=== PATIENT | female | born 1955 | race Caucasian/White ===

== ENCOUNTER → 2018-01-26 08:50 | Outpatient (CLI) | payer BC, SELFPAY ==
[2018-01-27 11:48] LABS: Basophils % 0.3 % (0.1-2.0); Eosinophils # 0.1 K/mm3 (0.0-0.4); Eosinophils % 0.8 % (0.1-12.0); Hemoglobin 13.9 g/dL (12.2-16.2); Lymphocytes # 2.7 K/mm3 (0.7-4.5); Lymphocytes % 40.7 K/mm3 (10-50); Mean Corpuscular HGB Conc 31.6 g/dL (31.8-35.4); Mean Corpuscular Volume 94.8 fl (81-99); Mean Platelet Volume 8.9 fl (7.4-10.4); Monocytes # 0.3 K/mm3 (0.1-1.0); Neutrophils # 3.6 K/mm3 (1.8-7.8); Neutrophils % 54.3 % (37.0-80.0); Platelet Count 379 K/mm3 (142-424); Red Blood Count 4.65 M/mm3 (4.20-5.40); Red Cell Distribution Width 12.6 % (11.5-17.5); White Blood Count 6.6 K/mm3 (4.8-10.8)
[2018-01-27 12:03] LABS: Alanine Aminotransferase 19 U/L (12-78); Albumin Level 4.2 gm/dL (3.4-5.0); Albumin/Globulin Ratio 1.3 (1.1-1.8); Alkaline Phosphatase 105 U/L (46-116); Anion Gap 12.3 mEq/L (5-15); Aspartate Amino Transferase 11 U/L (15-37); Bilirubin,Total 0.6 mg/dL (0.2-1.0); Blood Urea Nitrogen 13 mg/dL (7-18); Calcium 9.4 mg/dL (8.5-10.1); Carbon Dioxide 29 mmol/L (21.0-32.0); Chloride 104 mmol/L (98-107); Chol/HDL Ratio 3.1 (1-3.5); Cholesterol 210 mg/dL (140-200); Creatinine,Serum 0.97 mg/dL (0.55-1.02); Estimated Glomerular Filt Rate 59 ml/min (>60); Free T4 (Free Thyroxine) 0.98 ng/dl (0.76-1.46); GFR (African American) 71 ML/MIN (>60); Globulin 3.2 gm/dl (1.3-3.2); Glucose 88 mg/dL (74-106); HDL Cholesterol 68 mg/dL (29-89); LDL Cholesterol 117 mg/dL (0-130); Potassium 4.3 mmoL/L (3.5-5.1); Sodium 141 mmol/L (136-145); Thyroid Stimulating Hormone 2.03 uIU/ml (0.358-3.740); Total Protein,Serum 7.4 gm/dL (6.4-8.2); Triglycerides 126 mg/dL (30-200); VLDL Cholesterol 25 mg/dL (0-40)
[2018-01-30 12:54] LABS: Vitamin D 25 Hydroxy 26.8 ng/mL (30.0-100.0)
== END ==
PROVIDERS: Visit Provider Physician Assistant
DX: R01.1 Cardiac murmur, unspecified (principal); R06.00 Dyspnea, unspecified; R53.83 Other fatigue
CPT/HCPCS: 80053; 80061; 82652; 84439; 84443; 85025

== ENCOUNTER → 2018-01-26 11:58 | Outpatient (CLI) | payer BC, SELFPAY | PROVIDERS: PCP Physician Assistant; Visit Provider Physician Assistant | DX: R00.2 Palpitations (principal) | CPT/HCPCS: 93225; 93226 ==

== ENCOUNTER → 2018-02-08 09:28 | Outpatient (CLI) | payer BC, SELFPAY | PROVIDERS: Family Provider Physician Assistant; PCP Physician Assistant; Visit Provider Physician Assistant | DX: R01.1 Cardiac murmur, unspecified (principal); R06.00 Dyspnea, unspecified | CPT/HCPCS: 93306 ==

== ENCOUNTER → 2018-07-13 09:35 | Outpatient (CLI) | payer BC, SELFPAY ==
--- NOTE | 2018-07-13 09:41 | XR_ITS ---
XR wrist LT min 3V HISTORY pain following injury ITS.REASON: L wrist injury ORDERING PHYSICIAN: Shade Garcia PATIENT AGE: 62 years Comparison: None FINDINGS: No fracture or dislocation. No lytic or blastic change. There is normal mineralization.. The joint spaces are well-preserved. No significant degenerative/arthritic changes. No erosive changes evident.. IMPRESSION: Negative wrist
== END ==
PROVIDERS: PCP Emergency Medicine; Visit Provider Nurse Practitioner Family
DX: S69.92XA Unspecified injury of left wrist, hand and finger(s), initial encounter (principal)
CPT/HCPCS: 73110

== ENCOUNTER 2019-02-16 11:16 | Outpatient (CLI) | payer BC, SELFPAY ==
[2019-02-16 11:35] VITALS: BP 138/67; PULSE 78; RESP 18; TEMP 36.6; O2SAT 96
[2019-02-16 12:05] VITALS: BP 139/81; PULSE 71; RESP 18; TEMP 36.6; O2SAT 98
[2019-02-16 12:30] VITALS: BP 132/76; PULSE 74; RESP 18; TEMP 36.7; O2SAT 98
== END 2019-02-16 12:30 | disposition home or self-care (01) ==
LOC: INF 11:18
PROVIDERS: PCP Emergency Medicine; Visit Provider Emergency Medicine
DX: L03.211 Cellulitis of face (principal)
CPT/HCPCS: 96365; 96375

== ENCOUNTER 2019-02-17 11:27 | Outpatient (CLI) | payer BC, SELFPAY ==
[2019-02-17 11:41] VITALS: BP 133/80; PULSE 67; RESP 18; TEMP 37; O2SAT 97
[2019-02-17 13:14] VITALS: BP 130/78; PULSE 67; RESP 18; O2SAT 97
== END 2019-02-17 12:55 | disposition hospice, home (50) ==
LOC: INF 11:27
PROVIDERS: PCP Emergency Medicine; Visit Provider Emergency Medicine
DX: L03.211 Cellulitis of face (principal)
CPT/HCPCS: 96365; 96374; 96375

== ENCOUNTER → 2019-02-18 10:41 | Outpatient (CLI) | payer BC, SELFPAY ==
[2019-02-18 11:38] VITALS: BP 128/80; BP 130/89; PULSE 79; PULSE 80; RESP 16; TEMP 36.7; O2SAT 97; O2SAT 98
== END ==
PROVIDERS: PCP Emergency Medicine; Visit Provider Emergency Medicine
DX: L03.211 Cellulitis of face (principal)
CPT/HCPCS: 96365

== ENCOUNTER → 2020-04-02 09:48 | Outpatient (CLI) | payer BC, SELFPAY ==
--- NOTE | 2020-04-02 09:51 | MM_ITS ---
PROCEDURE: MM DIG SCREENING MAMM BI W/CAD Digital Breast Tomosynthesis Included CLINICAL INDICATION: SCREENING There is no personal or family history of breast cancer. COMPARISON: MG DIG MAMMO BILAT SCREENING from 09/17/2009 MG DIG MAMMO BILAT SCREENING from 09/18/2010 MG DMSB DIG MAMM-SCREEN RAHEEM W/CAD from 04/08/2017 TECHNIQUE: Standard CC and MLO images and 3D Tomosynthesis was obtained. R2 CAD reviewed. FINDINGS: The breasts are composed primarily of with minimal scattered fibroglandular densities in each breast. There are mole markers on each breast. IMPRESSION: Fibrofatty parenchyma with no suspicious lesions seen BI-RAD Category: 2 Benign Finding(s) FOLLOW-UP: 1YR 1 Year Follow-up (A letter has been sent to the patient regarding results of the study.) Dictated by: Dr. Kirill Mcleod MD 04/04/2020 07:39 Dr. Kirill Mcleod MD in [place] 04/04/2020 07:39
== END ==
PROVIDERS: PCP Nurse Practitioner Family; Visit Provider Nurse Practitioner Family
DX: Z12.31 Encounter for screening mammogram for malignant neoplasm of breast (principal)
CPT/HCPCS: 77063; 77067

== ENCOUNTER → 2021-01-26 08:47 | Outpatient (CLI) | payer BC, SELFPAY ==
--- NOTE | 2021-01-26 09:15 | XR_ITS ---
PROCEDURE: XR CHEST 2V CLINICAL HISTORY: PRECORDIAL PAIN COMPARISON: No exams were available for comparison FINDINGS: The cardiomediastinal silhouette and pulmonary vascularity are within normal limits. The lungs are clear without infiltrates, suspicious nodules, or pleural effusions. Minimal atelectatic or fibrotic change in the right lung base. IMPRESSION: Minimal right basilar atelectasis or fibrosis otherwise negative Dictated by: Hari Norman MD 01/26/2021 10:09 Hari Norman MD in [place] 01/26/2021 10:09
[2021-01-26 09:16] LABS: Basophils % 0.6 % (0.1-2.0); Eosinophils # 0.1 K/mm3 (0.0-0.4); Hematocrit 42.9 % (37.0-47.0); Lymphocytes # 2.6 K/mm3 (0.7-4.5); Lymphocytes % 35.1 % (10-50); Mean Corpuscular HGB Conc 32.6 g/dL (31.8-35.4); Mean Corpuscular Volume 94.9 fl (81-99); Mean Platelet Volume 8.4 fl (7.4-10.4); Monocytes # 0.3 K/mm3 (0.1-1.0); Monocytes % 3.8 % (1.7-9.3); Neutrophils # 4.3 K/mm3 (1.8-7.8); Neutrophils % 59.6 % (37.0-80.0); Platelet Count 361 K/mm3 (142-424); Red Blood Count 4.52 M/mm3 (4.20-5.40); Red Cell Distribution Width 12.9 % (11.5-17.5); White Blood Count 7.3 K/mm3 (4.8-10.8)
--- NOTE | 2021-01-26 09:33 | ECG_ITS ---
APPROVED REPORT Exam: Resting ECG HR:48 bpm ECG Measurements Heart Rate 48 AXES [place] 164 P 13 QRSd 96 QRS 4 QT 456 T 11 QTc 407 Conclusion Marked sinus bradycardia Abnormal ECG Electronically signed by : Abdirahman Lu MD 01/26/2021 18:01:33
[2021-01-26 09:36] LABS: D-Dimer 0.33 ug/mL (0.0-0.5)
[2021-01-26 09:59] LABS: Chloride 102 mmol/L (98-107); Potassium 3.8 mmoL/L (3.5-5.1); Sodium 141 mmol/L (136-145)
[2021-01-26 10:02] LABS: Alanine Aminotransferase 17 U/L (12-78); Albumin Level 4.2 g/dl (3.5-5.0); Albumin/Globulin Ratio 1.6 (1.1-1.8); Alkaline Phosphatase 84 U/L (38-126); Anion Gap 11.8 mEq/L (5-15); Aspartate Amino Transferase 29 U/L (14-36); Bilirubin,Total 0.8 mg/dl (0.2-1.3); Blood Urea Nitrogen 15 mg/dl (7-17); Carbon Dioxide 31 mmol/L (22.0-30.0); Estimated Glomerular Filt Rate 72 ml/min (>60); GFR (African American) 88 ML/MIN (>60); Globulin 2.6 g/dL (1.3-3.2); Total Protein,Serum 6.8 g/dl (6.3-8.2)
[2021-01-26 10:03] LABS: Calcium 9.3 mg/dl (8.4-10.2); Glucose 97 mg/dl (74-100)
[2021-01-26 10:31] LABS: Troponin I < 0.01 ng/ml (0.00-0.034)
[2021-01-26 10:34] LABS: Thyroid Stimulating Hormone 2.41 uIU/mL (0.465-4.68)
== END ==
PROVIDERS: Visit Provider Nurse Practitioner Family
DX: R07.2 Precordial pain (principal)
CPT/HCPCS: 36415; 71046; 80053; 84443; 84484; 85025; 85378; 93005

== ENCOUNTER → 2021-04-14 09:54 | Outpatient (CLI) | payer BC, SELFPAY ==
--- NOTE | 2021-04-14 10:04 | MM_ITS ---
PROCEDURE INFORMATION: Exam: MG Bilateral Screening 3D Mammography Exam date and time: 04/14/2021 10:04 AM Age: 65 years old Clinical indication: Screening exam; No personal or family HX of malignancy TECHNIQUE: Imaging protocol: Bilateral screening tomosynthesis and 2D mammography including computer-aided detection (CAD) when performed. COMPARISON: 1. MG MM DIG SCREENING MAMM BI W/CAD 04/02/2020 9:50 AM 2. MG DMSB DIG MAMM-SCREEN RAHEEM W/CAD 04/08/2017 10:33 AM FINDINGS: MAMMOGRAPHY: Breast composition: The breast tissue is composed of scattered areas of fibroglandular density. Mass: None. Architectural distortion: None. Calcifications: No suspicious calcifications. Asymmetric density: None. Skin thickening: None. Axillary adenopathy: None. IMPRESSION: No mammographic evidence of malignancy. Annual screening is recommended unless otherwise clinically indicated. ASSESSMENT: BI-RADS Category 1: Negative
== END ==
PROVIDERS: PCP Nurse Practitioner Family; Visit Provider Nurse Practitioner Family
DX: Z12.31 Encounter for screening mammogram for malignant neoplasm of breast (principal)
CPT/HCPCS: 77063; 77067

== ENCOUNTER 2022-06-23 17:15 | Emergency (ER) | payer BC, SELFPAY ==
[2022-06-23 17:16] VITALS: BP 172/102; PULSE 64; RESP 18; TEMP 36.6; O2SAT 100; BMI 27.6
[2022-06-23 17:47] VITALS: PULSE 72; O2SAT 100
--- NOTE | 2022-06-23 18:08 | CT_ITS ---
PROCEDURE INFORMATION: Exam: CT Head Without Contrast Exam date and time: 06/23/2022 6:53 PM Age: 66 years old Clinical indication: Stroke-like symptoms; Headache; Additional info: Cerebral hemorrhage suspected TECHNIQUE: Imaging protocol: Computed tomography of the head without contrast. Radiation optimization: All CT scans at this facility use at least one of these dose optimization techniques: automated exposure control; mA and/or kV adjustment per patient size (includes targeted exams where dose is matched to clinical indication); or iterative reconstruction. Other technique: STROKE PROTOCOL was implemented. COMPARISON: No relevant prior studies available. FINDINGS: Brain: Normal. No hemorrhage. No mass effect. No evidence of acute infarct. Cortical sulci and white matter are unremarkable for age Cerebral ventricles: No ventriculomegaly. Paranasal sinuses: Visualized sinuses are unremarkable. No fluid levels. Mastoid air cells: Visualized mastoid air cells are well aerated. Bones/joints: Unremarkable. Soft tissues: Unremarkable. IMPRESSION: Normal CT examination of the head. ASSESSMENT: ASPECTS ([place] Stroke Program Early CT Score) is 10.
[2022-06-23 18:10] LABS: Basophils # 0.1 K/mm3 (0-0.2); Basophils % 0.7 % (0.1-2.0); Eosinophils % 0.4 % (0.1-12.0); Hematocrit 40.6 % (37.0-47.0); Hemoglobin 13.6 g/dL (12.2-16.2); Lymphocytes # 2.2 K/mm3 (0.7-4.5); Lymphocytes % 21.5 % (10-50); Mean Corpuscular HGB Conc 33.4 g/dL (31.8-35.4); Mean Corpuscular Hemoglobin 30.4 pg (27.0-31.2); Mean Corpuscular Volume 91.2 fl (81-99); Monocytes # 0.3 K/mm3 (0.1-1.0); Monocytes % 2.7 % (1.7-9.3); Neutrophils # 7.7 K/mm3 (1.8-7.8); Neutrophils % 74.7 % (37.0-80.0); Platelet Count 340 K/mm3 (142-424); Red Blood Count 4.46 M/mm3 (4.20-5.40); Red Cell Distribution Width 12.7 % (11.5-17.5); White Blood Count 10.4 K/mm3 (4.8-10.8)
[2022-06-23 18:15] LABS: Anion Gap 13.1 mEq/L (5-15); Blood Urea Nitrogen 17 mg/dl (7-17); Calcium 8.9 mg/dl (8.4-10.2); Carbon Dioxide 26 mmol/L (22.0-30.0); Chloride 100 mmol/L (98-107); Creatinine Clearance Estimated 63 mL/min (50-200); Estimated Glomerular Filt Rate 84 ml/min (>60); GFR (African American) 102 ML/MIN (>60); Glucose 126 mg/dl (74-100); Potassium 3.1 mmoL/L (3.5-5.1); Sodium 136 mmol/L (136-145)
--- NOTE | 2022-06-23 19:00 | PC.NURSE ---
pt back from scan
[2022-06-23 19:44] VITALS: BP 135/79; PULSE 68; RESP 18; O2SAT 98
[2022-06-23 20:00] VITALS: BP 133/67; PULSE 62; RESP 18; O2SAT 98
--- NOTE | 2022-06-23 20:30 | HMH.EDGENADL ---
Discharge Plan Disposition Patient Disposition: Home, Self-Care Prescriptions Prescriptions: No Action esomeprazole magnesium [Nexium] 20 mg capsule,delayed release(DR/EC) 20 mg PO DAILY prednisone 20 mg tablet 20 mg PO BID 5 Days Qty: 10 0RF Rx Instructions: administer with food or milk lisinopril 10 mg tablet 10 mg PO DAILY Qty: 90 0RF fluticasone propionate 120 SPR/BOT bottle 2 spr NS DAILY Rx Instructions: each nostril daily Referrals Follow up/Referrals: Gina Davalos [Primary Care Provider] - See instructions Clinical Impressions Clinical Impression: Migraine Instructions Patient Instructions: DI for Migraine Discharge ED Provider: Thomas Jarvis General Adult HPI General Chief complaint: Headache Stated complaint: Vomitting,Chills,Blurry vision, bp high Time Seen by Provider: 06/23/22 17:30 Mode of Arrival: Wheelchair Source of Information: Patient and Relative Limitations: No Limitations Description of Symptoms (Recalled from ER Triage Doc. by RN): c/o headache, eye pain, body aches, nauseated since Tuesday , States she got her shingles shot Tuesday and these symptoms developed that evening. STates when she coughs or sneezes her headache gets worse and she sees halos in her eyes that come and go. She had became sensitive to bright lights. History of Present Illness HPI narrative: Patient is a 66-year-old female with no pertinent past medical history who presents with concern for headache. She states that starting on Tuesday she started to get body aches, headache. She says that she got the shingles shot during that time and it was shortly after that so she attributed to the shingles shot. She says that since then she intermittently has gotten halos in her right eye that seem to come and go. She says that lights are also bothering her. She does not have a history of migraine. She denies any rapid onset of headache. She denies any numbness or tingling into her extremities. She says that her symptoms have persisted so she wanted to come in for evaluation. Related Data Home Medications Medication Instructions Recorded Confirmed esomeprazole magnesium 20 mg 20 mg PO DAILY Reflux/Acid reflux 10/26/17 06/23/22 capsule,delayed release (Nexium) fluticasone propionate 50 2 spr NS DAILY allergies 02/16/19 06/23/22 mcg/actuation nasal spray,suspension Previous Rx's Medication Instructions Recorded lisinopril 10 mg tablet 10 mg PO DAILY High blood pressure 06/04/19 #90 tabs prednisone 20 mg tablet 20 mg PO BID x 5 days #10 tabs 08/02/19 Allergies Allergy/AdvReac Type Severity Reaction Status Date / Time ofloxacin [From Floxin] Allergy Verified 08/02/19 15:53 Penicillins Allergy Verified 08/02/19 15:53 Sulfa (Sulfonamide Allergy Verified 08/02/19 15:53 Antibiotics) [facility] Disclaimer: The information contained in this section may have been updated after the patient was seen, as this information can be updated by other users. Medical History (Updated 06/23/22 @ 20:29 by Thomas Jarvis MD) Dyspnea Fatigue Heart murmur Social History Smoking Status: Never smoker alcohol intake: never substance use type: denies use current occupational status: employed Travel in the last 8 weeks: None household members: spouse and family housing: house caffeine: Yes ROS Obtained: Yes All systems reviewed & no additional complaints except as documented A 14 point review of system was obtained and otherwise negative except per HPI Physical Exam General General appearance: alert and in no apparent distress Head Head exam: atraumatic, normocephalic and normal inspection Eye Eye exam: Present normal appearance, PERRL and EOMI ENT ENT exam: Present normal exam, normal oropharynx, mucous membranes moist and normal external ear exam Neck Neck exam: Present normal inspection, full ROM and trachea midline; Absent
[2022-06-23 21:12] VITALS: BP 133/67; PULSE 62; RESP 18; TEMP 37.1; O2SAT 98
== END 2022-06-23 21:00 | disposition home or self-care (01) ==
PROVIDERS: Emergency Provider Student in an Organized Health Care Education/Training Program; PCP Nurse Practitioner Family
DX: G43.909 Migraine, unspecified, not intractable, without status migrainosus (principal); R01.1 Cardiac murmur, unspecified
CPT/HCPCS: 70450; 80048; 85025; 96361; 96374; 96375; 99285; J2405

== ENCOUNTER 2022-06-27 21:07 | Emergency (ER) | payer BC, SELFPAY ==
[2022-06-27 21:10] VITALS: BP 152/83; PULSE 55; RESP 16; TEMP 36.4; O2SAT 100; BMI 28.9
--- NOTE | 2022-06-27 21:17 | ECG_ITS ---
APPROVED REPORT Exam: Resting ECG HR:61 bpm ECG Measurements Heart Rate 61 AXES [place] 155 P 47 QRSd 102 QRS 55 QT 432 T 50 QTc 436 Conclusion SINUS RHYTHM MODERATE ST DEPRESSION [0.05+ mV ST DEPRESSION] ABNORMAL ECG UNCONFIRMED REPORT Electronically signed by : Abdirahman Lu MD 06/28/2022 20:18:21
--- NOTE | 2022-06-27 21:39 | XR_ITS ---
PROCEDURE INFORMATION: Exam: XR Chest Exam date and time: 06/27/2022 9:40 PM Age: 66 years old Clinical indication: Other: High blood pressure; Additional info: High BP TECHNIQUE: Imaging protocol: Radiologic exam of the chest. Views: 2 views. COMPARISON: CR XR CHEST 2V 01/26/2021 9:16 AM FINDINGS: Lungs: Unremarkable. No consolidation. Pleural spaces: Unremarkable. No pleural effusion. No pneumothorax. Heart/Mediastinum: Unremarkable. No cardiomegaly. Bones/joints: Unremarkable. IMPRESSION: No acute findings.
[2022-06-27 21:59] LABS: Basophils # 0.1 K/mm3 (0-0.2); Basophils % 0.7 % (0.1-2.0); Chloride 100 mmol/L (98-107); Eosinophils # 0.1 K/mm3 (0.0-0.4); Eosinophils % 0.6 % (0.1-12.0); Hemoglobin 14.1 g/dL (12.2-16.2); Lymphocytes # 4.5 K/mm3 (0.7-4.5); Lymphocytes % 49.5 % (10-50); Mean Corpuscular HGB Conc 32.9 g/dL (31.8-35.4); Mean Corpuscular Volume 91.3 fl (81-99); Mean Platelet Volume 7.9 fl (7.4-10.4); Monocytes # 0.4 K/mm3 (0.1-1.0); Monocytes % 4.7 % (1.7-9.3); Neutrophils # 4.1 K/mm3 (1.8-7.8); Neutrophils % 44.6 % (37.0-80.0); Platelet Count 399 K/mm3 (142-424); Red Blood Count 4.71 M/mm3 (4.20-5.40); Red Cell Distribution Width 12.7 % (11.5-17.5); Sodium 141 mmol/L (136-145); White Blood Count 9.1 K/mm3 (4.8-10.8)
[2022-06-27 22:01] LABS: Alanine Aminotransferase 31 U/L (12-78); Aspartate Amino Transferase 54 U/L (14-36); Blood Urea Nitrogen 11 mg/dl (7-17); Creatinine Clearance Estimated 64 mL/min (50-200); Estimated Glomerular Filt Rate 72 ml/min (>60); GFR (African American) 87 ML/MIN (>60)
[2022-06-27 22:02] LABS: Albumin Level 4.6 g/dl (3.5-5.0); Albumin/Globulin Ratio 1.5 (1.1-1.8); Alkaline Phosphatase 106 U/L (38-126); Anion Gap 12.8 mEq/L (5-15); Bilirubin,Total 0.7 mg/dl (0.2-1.3); Calcium 8.9 mg/dl (8.4-10.2); Carbon Dioxide 31 mmol/L (22.0-30.0); Globulin 3.1 g/dL (1.3-3.2); Glucose 114 mg/dl (74-100); Total Protein,Serum 7.7 g/dl (6.3-8.2)
[2022-06-27 22:04] LABS: Potassium 2.8 mmoL/L (3.5-5.1)
--- NOTE | 2022-06-27 22:14 | PC.NURSE ---
notified logan of critical potasium 2.8
[2022-06-27 22:17] LABS: Troponin I < 0.01 ng/ml (0.00-0.034)
--- NOTE | 2022-06-27 22:22 | HMH.EDHA ---
Discharge Plan Disposition Patient Disposition: Home, Self-Care Chief Complaint: Headache Prescriptions Prescriptions: No Action esomeprazole magnesium [Nexium] 20 mg capsule,delayed release(DR/EC) 20 mg PO DAILY prednisone 20 mg tablet 20 mg PO BID 5 Days Qty: 10 0RF Rx Instructions: administer with food or milk lisinopril 10 mg tablet 10 mg PO DAILY Qty: 90 0RF fluticasone propionate 120 SPR/BOT bottle 2 spr NS DAILY Rx Instructions: each nostril daily Referrals Follow up/Referrals: Gina Davalos [Primary Care Provider] - See instructions Clinical Impressions Clinical Impression: Headache, Hypertension Instructions Patient Instructions: DI for Headache Discharge ED Provider: Maco Guzman Headache HPI General Chief Complaint: Headache Stated Complaint: HBP 215/117 Time Seen by Provider: 06/27/22 22:22 Mode of Arrival: Ambulatory Source of Information: Patient, Relative and Medical Record Limitations: No Limitations Description of Symptoms (Recalled from ER Triage Doc. by RN): pt c/o high bp since this morning and pt took a extra dose of lisinopril 5mg around 7:30 also a PALACIO today, and dry mouth History of Present Illness HPI Narrative: pt reports sx since shingles vaccine - has diffuse palacio w/o focal neuro sx and has no fever/rash or trauma - has elevated bp and was seen in ed a few days ago for same with neg head ct - MD Complaint: headache Onset (ago): day(s) Onset description: gradual Location: diffuse Severity: moderate Context: occurred at rest Associated symptoms: none Related Data Home Medications Medication Instructions Recorded Confirmed esomeprazole magnesium 20 mg 20 mg PO DAILY Reflux/Acid reflux 10/26/17 06/23/22 capsule,delayed release (Nexium) fluticasone propionate 50 2 spr NS DAILY allergies 02/16/19 06/23/22 mcg/actuation nasal spray,suspension Previous Rx's Medication Instructions Recorded lisinopril 10 mg tablet 10 mg PO DAILY High blood pressure 06/04/19 #90 tabs prednisone 20 mg tablet 20 mg PO BID x 5 days #10 tabs 08/02/19 Allergies Allergy/AdvReac Type Severity Reaction Status Date / Time ofloxacin [From Floxin] Allergy Verified 08/02/19 15:53 Penicillins Allergy Verified 08/02/19 15:53 Sulfa (Sulfonamide Allergy Verified 08/02/19 15:53 Antibiotics) [facility] History Hepatitis A Screen Attestation statement:: This patient has been screened for Hepatitis A risk factors. I have reviewed the patient's past medical history: Yes Medical History: Reports: Anxiety, Gastroesophageal Reflux Disease(GERD), Heart Murmur and Hypertension; Denies: Cancer, Diabetes Mellitus Type 1, Diabetes Mellitus Type 2 or MRSA Other Medical History: Reports Sinus Problems Laterality Cases: Right: Arthroscopy Knee Other Surgeries: Yes , Dilation and Curettage and Other Amputation: No Fractures: No Social History Smoking Status: Never smoker Alcohol Intake: never Substance Use Type: denies use Occupational Status: employed Housing: house Household Members: spouse and family Psychiatric History Pschychiatric History:: Reports: Anxiety Family Hx:: No significant family history [facility] Disclaimer: The information contained in this section may have been updated after the patient was seen, as this information can be updated by other users. Medical History (Updated 06/28/22 @ 00:15 by Maco Guzman MD) Dyspnea Fatigue Heart murmur Social History Smoking Status: Never smoker alcohol intake: never substance use type: denies use current occupational status: employed Travel in the last 8 weeks: None household members: spouse and family housing: house caffeine: Yes ROS Obtained: Yes All systems reviewed & no additional complaints except as documented Physical Exam General General appearance: alert Head Head exam: normocephalic Eye Eye exam: Present PERRL and EOMI; Absent scle
[2022-06-27 22:30] VITALS: BP 145/66; PULSE 56; RESP 18; O2SAT 100
[2022-06-27 23:01] VITALS: BP 159/60; PULSE 63; RESP 20; O2SAT 98
[2022-06-27 23:30] VITALS: BP 162/66; PULSE 65; RESP 18; O2SAT 100
[2022-06-28 00:20] VITALS: BP 167/87; PULSE 59; RESP 16; TEMP 36.4; O2SAT 100
== END 2022-06-28 00:25 | disposition home or self-care (01) ==
PROVIDERS: Emergency Provider Emergency Medicine; PCP Nurse Practitioner Family
DX: I10 Essential (primary) hypertension (principal); R51.9 Headache, unspecified; F41.9 Anxiety disorder, unspecified; K21.9 Gastro-esophageal reflux disease without esophagitis; R01.1 Cardiac murmur, unspecified; Z96.651 Presence of right artificial knee joint
CPT/HCPCS: 71046; 80053; 84484; 85025; 93005; 96361; 96374; 96375; 99285; J0131; J2405

== ENCOUNTER → 2022-06-28 10:44 | Outpatient (CLI) | payer BC, SELFPAY ==
[2022-06-28 11:23] LABS: Magnesium 1.7 mg/dl (1.6-2.3)
[2022-06-28 11:40] LABS: Free T4 (Free Thyroxine) 1.52 ng/dl (0.78-2.19)
[2022-06-28 11:54] LABS: Thyroid Stimulating Hormone 2.99 uIU/mL (0.465-4.68)
== END ==
PROVIDERS: Visit Provider Physician Assistant
DX: I10 Essential (primary) hypertension (principal); R01.1 Cardiac murmur, unspecified; R51.9 Headache, unspecified
CPT/HCPCS: 83735; 84439; 84443

== ENCOUNTER → 2023-01-13 09:25 | Outpatient (CLI) | payer BC, MEDICARE, SELFPAY ==
--- NOTE | 2023-01-13 09:30 | XR_ITS ---
FINAL REPORT TECHNIQUE: Bone mineral density was calculated of the lumbar spine and hip. CLINICAL HISTORY: post menopausal FINDINGS: Using L1-4, the bone mineral density of the spine is 0.99 g/cm2, corresponding to T-score of -0.5. Using the left hip, the bone mineral density of the femoral neck is 0.67 g/cm2, corresponding to a T-score of -1.6. Using the right hip, the bone mineral density of the femoral neck is 0.63 g/cm2, corresponding to a T-score of - 2.0. NOTE: T-score: Standard deviation compared with peak bone mass of young adult mean. *Following the recommendations of the International Society of Bone densitometry, classification of hip BMD is based on the lower of two T-scores; total hip or femoral neck. IMPRESSION: Diminished bone mineral density of the left and right hip consistent with osteopenia. Normal bone mineral density of the lumbar spine. Reviewed, Interpreted and Dictated by Vinod Driver III, MD Transcribed by Sara Garcia Authenticated and [facility]
--- NOTE | 2023-01-13 09:31 | MM_ITS ---
PROCEDURE INFORMATION: Exam: MG Bilateral Screening 3D Mammography Exam date and time: 01/13/2023 9:51 AM Age: 67 years old Clinical indication: Screening examination TECHNIQUE: Imaging protocol: Bilateral Screening tomosynthesis and 2D mammography including computer-aided detection (CAD) when performed. COMPARISON: 1. MG MM DIG SCREENING MAMM BI W/CAD 04/14/2021 10:00 AM 2. MG MM DIG SCREENING MAMM BI W/CAD 04/02/2020 9:50 AM FINDINGS: MAMMOGRAPHY: Breast composition: There are scattered areas of fibroglandular density. Mass: None. Architectural distortion: None. Calcifications: No suspicious calcifications. Asymmetric density: None. Skin thickening: None. Axillary adenopathy: None. IMPRESSION: No mammographic evidence of malignancy. Annual screening is recommended unless otherwise clinically indicated. ASSESSMENT: BI-RADS Category 1: Negative
== END ==
PROVIDERS: PCP Nurse Practitioner Family; Visit Provider Nurse Practitioner Family
DX: Z13.820 Encounter for screening for osteoporosis (principal); Z78.0 Asymptomatic menopausal state; Z12.31 Encounter for screening mammogram for malignant neoplasm of breast
CPT/HCPCS: 77063; 77067; 77080

== ENCOUNTER 2023-06-22 00:26 | Emergency (ER) | payer BC, MEDICARE, SELFPAY ==
[2023-06-22] VITALS (9 sets, daily range): BP systolic 138–178; BP diastolic 77–94; PULSE 52–74; RESP 16–20; TEMP 36.5–36.7; O2SAT 95–100; BMI 27.6
--- NOTE | 2023-06-22 00:28 | ECG_ITS ---
APPROVED REPORT Exam: Resting ECG HR:65 bpm ECG Measurements Heart Rate [address] 169 P 66 QRSd 91 QRS 42 QT 394 T 37 QTc 406 Conclusion SINUS RHYTHM MODERATE ST DEPRESSION [0.05+ mV ST DEPRESSION] ABNORMAL ECG UNCONFIRMED REPORT Electronically signed by : Abdirahman Lu MD 06/22/2023 08:35:46
--- NOTE | 2023-06-22 00:31 | ED_ITS ---
Discharge Plan Disposition Patient Disposition: Home, Self-Care Prescriptions Prescriptions: No Action esomeprazole magnesium [Nexium] 20 mg capsule,delayed release(DR/EC) 20 mg PO DAILY rosuvastatin 10 mg tablet 10 mg PO DAILY cholecalciferol (vitamin D3) 25 mcg (1,000 unit) capsule 25 mcg PO DAILY lisinopril-hydrochlorothiazide 10-12.5 mg tablet 1 tab PO DAILY potassium chloride [Klor-Con 10] 10 mEq tablet extended release 10 meq PO DAILY Qty: 30 2RF lisinopril 10 mg tablet 10 mg PO DAILY Qty: 30 5RF Referrals Follow up/Referrals: Gina Davalos [Primary Care Provider] - See instructions Lewis Andrade MD [Staff Physician] - See instructions Activity Restrictions/Add. Instructions Additional Instructions/Restrictions: Please follow-up with your primary care provider and with a local area network administrator. Please return to the emergency department if you develop any new or worsening symptoms or become concerned for your health. Clinical Impressions Clinical Impression: Chest pain Qualifiers: Chest pain type: unspecified Qualified Code(s): R07.9 - Chest pain, unspecified Discharge ED Provider: Chino Fofana General Adult HPI General Chief complaint: Chest Pain Stated complaint: Chest pain Time Seen by Provider: 06/22/23 00:31 History of Present Illness HPI narrative: 67-year-old female with history of hypertension, hyperlipidemia, GERD anxiety presents with chest pain. She reports it started initially as a twinge in her right shoulder. 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 The symptoms then transition to the left side and resulted with tingling down her arm on the left. She denies any current chest pain but was feeling some symptoms earlier. Symptoms started approximately 45 minutes prior to arrival. Reports no history of cardiac pathology. No history of blood clots or recent surgery immobilization. She denies shortness of br eath. She reports that she stopped taking her omeprazole recently and she ate something about an hour prior to the symptoms onset. No abdominal symptoms. Related Data Home Medications Medication Instructions Recorded Confirmed esomeprazole magnesium 20 mg 20 mg PO DAILY Reflux/Acid reflux 10/26/17 06/28/22 capsule,delayed release (Nexium) cholecalciferol (vitamin D3) 25 25 mcg PO DAILY 01/23/23 01/23/23 mcg (1,000 unit) capsule lisinopril 10 1 tab PO DAILY 06/28/22 06/28/22 mg-hydrochlorothiazide 12.5 mg tablet rosuvastatin 10 mg tablet 10 mg PO DAILY 06/28/22 06/28/22 Previous Rx's Medication Instructions Recorded potassium chloride 10 mEq 10 meq PO DAILY #30 tabs 06/28/22 tablet,extended release (Klor-Con) lisinopril 10 mg tablet 10 mg PO DAILY #30 tabs 09/30/22 Allergies Allergy/AdvReac Type Severity Reaction Status Date / Time ofloxacin [From Floxin] Allergy Verified 06/28/22 10:35 Penicillins Allergy Verified 06/28/22 10:35 Sulfa (Sulfonamide Allergy Verified 06/28/22 10:35 Antibiotics) [facility] Disclaimer: The information contained in this section may have been updated after the patient was seen, as this information can be updated by other users. Medical History Dyspnea Fatigue Heart murmur Social History Smoking Status: Never smoker alcohol intake: never substance use type: denies use current occupational status: employed Travel in the last 8 weeks: None household members: spouse and family housing: house caffeine: Yes ROS Obtained: Yes All systems reviewed & no additional complaints except as documented Physical Exam General General appearance: alert and in no apparent distress Head Head exam: atraumatic and normocephalic Eye Eye exam: Present normal appearance, PERRL and EOMI ENT ENT exam: Present normal oropharynx and normal external ear exam Neck Neck exam: Present normal inspection and full ROM Chest Chest inspection: Present normal inspection and symmetric chest wall rise; Absent tenderness Respiratory Respiratory exam: Present normal lung sounds bilaterally; Absent respiratory distress Cardiovascular Cardiovascular exam: Present regular rate and normal rhythm Abdominal Exam Abdominal exam: Present soft; Absent distention, tenderness or guarding Extremities Exam Extremities exam: Present normal inspection; Absent edema or joint swelling Back Exam Back exam: Present normal inspection; Absent tenderness Neurological Exam Neurological exam: Present alert and oriented X3; Absent motor sensory deficit Psychiatric Psychiatric exam: Present normal affect and normal mood Skin Skin exam: Present warm, dry and normal color Lymphatic Lymphatic Findings: no adenopathy Medical Decision Making Medical Records Medical records reviewed: Yes I reviewed the patient's medical records. Bg Inquiry Pt receiving controlled substance: No Bg was queried for this patient: No Vital Signs: 06/22/23 00:33 06/22/23 01:00 06/22/23 01:27 Temperature 97.7 F Temperature Source Oral Pulse Rate 62 52 L Pulse Rate [Left Radial] 72 Respiratory Rate 16 18 18 Blood Pressure 178/87 H 138/94 H Blood Pressure [Right Arm] 148/90 H Blood Pressure Mean 117 108 Blood Pressure Mean [Right Arm] 109 Blood Pressure Source [Right Arm] Automatic Cuff Blood Pressure Position [Right Arm] Sitting 02 Sat by Pulse Oximetry 100 99 99 Oxygen Delivery Method Room Air Room Air Room Air 06/22/23 02:00 06/22/23 02:30 06/22/23 03:00 Temperature Temperature Source Pulse Rate 53 L 52 L 74 Pulse Rate [Left Radial] Respiratory Rate 16 18 18 Blood Pressure 164/83 H 155/78 H 138/77 Blood Pressure [Right Arm] Blood Pressure Mean 110 117 111 Blood Pressure Mean [Right Arm] Blood Pressure Source [Right Arm] Blood Pressure Position [Right Arm] 02 Sat by Pulse Oximetry 96 97 95 Oxygen Delivery Method Room Air Room Air Room Air 06/22/23 03:32 06/22/23 04:01 Temperature Temperature Source Pulse Rate 60 56 L Pulse Rate [Left Radial] Respiratory Rate 20 Blood Pressure 158/91 H 150/78 H Blood Pressure [Right Arm] Blood Pressure Mean 119 Blood Pressure Mean [Right Arm] Blood Pressure Source [Right Arm] Blood Pressure Position [Right Arm] 02 Sat by Pulse Oximetry 99 96 Oxygen Delivery Method Room Air Room Air Lab Data Lab results reviewed: Yes I reviewed the patient's lab results. Lab Results 06/22/23 00:28: WBC 8.9, RBC 4.58, Hgb 14.0, Hct 43.2, MCV 94.3, MCH 30.7, MCHC 32.5, RDW 12.9, Plt Count 347, MPV 8.1, Neut % (Auto) 39.0, Lymph % (Auto) 53.2 H, Mingo % (Auto) 4.8, Eos % (Auto) 2.2, Baso % (Auto) 0.9, Neut # (Auto) 3.5, L ymph # (Auto) 4.7 H, Mingo # (Auto) 0.4, Eos # (Auto) 0.2, Baso # (Auto) 0.1, Total Counted 100, Neutrophils % (Manual) 37 L, Lymphocytes % (Manual) 56 H, Monocytes % (Manual) 1 L, Eosinophils % (Manual) 5 H, Basophils % (Manual) 1.0, Platelet Estimate Normal, RBC Morphology Normal, D-Dimer 0.42, Sodium 140, Potassium 3.5, Chloride 104, Carbon Dioxide 32 H, Anion Gap 7.5, BUN 17, Creatinine 0.80, Estimated Creat Clear 63, Estimated GFR 72, Est GFR ( Amer) 87, Glucose 118 H, Calcium 8.9, Total Bilirubin 0.4, AST 34, ALT 24, Alkaline Phosphatase 96, Troponin I < 0.01, Total Protein 7.3, Albumin 4.4, Globulin 2.9, Albumin/Globulin Ratio 1.5 06/22/23 03:32: Troponin I < 0.01 06/22/23 00:28 06/22/23 00:28 Orders (Tests/Meds): ED MEDICATIONS Generic Name Dose Route Start Last Admin Trade Name Freq PRN Reason Stop Dose Admin Nitroglycerin 0.4 mg 06/22/23 00:32 Nitroglycerin 0.4mg Sl Tablet SL 07/22/23 00:31 [id number] PRN Chest Pain Discontinued Medications Generic Name Dose Route Start Last Admin Trade Name Freq PRN Reason Stop Dose Admin Aspirin 325 mg 06/22/23 00:32 06/22/23 01:11 Aspirin 325mg Tablet PO 06/22/23 00:33 325 mg ONCE ONE Administration Ondansetron HCl 4 mg 06/22/23 01:16 06/22/23 01:20 Ondansetron 4mg/2ml Vial IV 06/22/23 01:17 Not Given ONCE ONE ORDERS Category Date Time Status CXR --portable [XR chest portable] Stat Exams 06/22/23 00:32 Completed CBC w/Auto Diff [Complete Blood Count Auto Diff] Stat Lab 06/22/23 00:28 Completed CMP [Comprehensive Metabolic Panel] Stat Lab 06/22/23 00:28 Completed D-Dimer Stat Lab 06/22/23 00:28 Completed Troponin I Q3H Lab 06/22/23 00:28 Completed Troponin I Q3H Lab 06/22/23 03:32 Completed ECG initial Besson Routine Y 06/22/23 00:28 Completed ECG Data Tracing #1: I reviewed this ECG and interpreted as documented below: Sinus rhythm, rate of 65, horizontal mild ST depression in 2 [address] elevation noted. ECG initial impression date: 06/22/23 ECG initial impression time: 00:32 HEART Score History (anamnesis): Slightly suspicious ECG: Non-specific disturbance Age: 45-65 years Risk factors: 1-2 risk factors Troponin: </= normal limit HEART Score: 3 Medical Decision Narrative: 67-year-old female, presentation complicated by history of hypertension, hyperlipidemia, anxiety, GERD presents with chest pain radiating to bilateral shoulders and tingling in the left arm that started approximately 45 minutes prior to arrival.. History was obtained via conversation with patient, family. On arrival, patient is [afebrile, hemodynamically stable, satting appropriately, alert, oriented x4, GCS 15], moving all extremities spontaneously. Full physical exam performed and significant for no significant physical exam abnormalities. Differential includes but is not limited to ACS, PE, musculoskeletal chest pain, GERD, lung pathology. Patient was given full dose aspirin, nitroglycerin for symptomatic management and correction of underlying abnormalities. Workup initiated including CBC CMP troponin D-dimer EKG chest x-ray. Patient was placed on awake overnight monitor On re-evaluation, patient [remains afebrile, HD stable.] She reports no further symptoms after she vomited up the barbecue chips she was eating earlier. Laboratory workup independently interpreted by me and significant for initial troponin negative, D-dimer negative, no significant electrolyte derangements, no leukocytosis.. Imaging independently interpreted by me and significant for clear lungs without focal opacity. See radiology read for full review of final results. EKG independently interpreted by me and significant as documented above. Patient was placed in observation status at 0 130 for continued observation and serial troponins to assess for possible cardiac pathology and prevent potentia lly unnecessary admission. Repeat troponin is undetectably low. Patient remains completely asymptomatic. At 0 400 patient was taken out of observation status and deemed appropriate for outpatient follow-up with cardiology and PCP. Total time in observation of 2 hours and 30 minutes. Admission for chest pain workup was considered, but deemed unnecessary due to nonspecific symptoms, negative troponin x 2, patient asymptomatic, heart score 3. Given patient history, exam and workup, patient's presentation most likely represents GERD. I discussed with patient that she should follow-up for further assessment. Return precautions were given. Procedures Risk/Benefits of Procedure(s) Were Explained: Yes Critical Care Critical Care Time Critical Care Time: No
--- NOTE | 2023-06-22 00:32 | XR_ITS ---
PROCEDURE INFORMATION: Exam: XR Chest Exam date and time: 06/22/2023 12:33 AM Age: 67 years old Clinical indication: Pain; Chest pressure; Additional info: Chest pain TECHNIQUE: Imaging protocol: Radiologic exam of the chest. Views: 1 view. COMPARISON: CR XR CHEST 2V 06/27/2022 9:40 PM FINDINGS: Lungs: Clear, symmetrically inflated lungs. Pleural spaces: No pleural effusion. No pneumothorax. Heart/Mediastinum: Cardiac silhouette is normal in size for technique. Bones/joints: Age appropriate. IMPRESSION: No acute cardiopulmonary abnormality.
[2023-06-22 00:39] LABS: Basophils # 0.1 K/mm3 (0-0.2); Basophils % 0.9 % (0.1-2.0); Eosinophils # 0.2 K/mm3 (0.0-0.4); Eosinophils % 2.2 % (0.1-12.0); Hematocrit 43.2 % (37.0-47.0); Lymphocytes # 4.7 K/mm3 (0.7-4.5); Lymphocytes % 53.2 % (10-50); Mean Corpuscular HGB Conc 32.5 g/dL (31.8-35.4); Mean Corpuscular Hemoglobin 30.7 pg (27.0-31.2); Mean Corpuscular Volume 94.3 fl (81-99); Mean Platelet Volume 8.1 fl (7.4-10.4); Monocytes # 0.4 K/mm3 (0.1-1.0); Monocytes % 4.8 % (1.7-9.3); Neutrophils # 3.5 K/mm3 (1.8-7.8); Platelet Count 347 K/mm3 (142-424); Red Blood Count 4.58 M/mm3 (4.20-5.40); Red Cell Distribution Width 12.9 % (11.5-17.5); White Blood Count 8.9 K/mm3 (4.8-10.8)
[2023-06-22 00:40] LABS: MANUAL DIFFERENTIAL MANUAL DIFFERENTIAL (MANUAL DIFF)
[2023-06-22 00:41] LABS: Chloride 104 mmol/L (98-107); Potassium 3.5 mmoL/L (3.5-5.1); Sodium 140 mmol/L (136-145)
[2023-06-22 00:43] LABS: Alanine Aminotransferase 24 U/L (12-78); Aspartate Amino Transferase 34 U/L (14-36); Blood Urea Nitrogen 17 mg/dl (7-17); Creatinine Clearance Estimated 63 mL/min (50-200); Estimated Glomerular Filt Rate 72 ml/min (>60); GFR (African American) 87 ML/MIN (>60)
[2023-06-22 00:44] LABS: Albumin Level 4.4 g/dl (3.5-5.0); Albumin/Globulin Ratio 1.5 (1.1-1.8); Alkaline Phosphatase 96 U/L (38-126); Anion Gap 7.5 mEq/L (5-15); Bilirubin,Total 0.4 mg/dl (0.2-1.3); Calcium 8.9 mg/dl (8.4-10.2); Carbon Dioxide 32 mmol/L (22.0-30.0); Globulin 2.9 g/dL (1.3-3.2); Glucose 118 mg/dl (74-100); Total Protein,Serum 7.3 g/dl (6.3-8.2)
[2023-06-22 00:59] LABS: Troponin I < 0.01 ng/ml (0.00-0.034)
[2023-06-22] MEDS: ASPIRIN 325MG TABLET 325 MG PO (01:11)
[2023-06-22 01:28] LABS: Eosinophils % 5 % (0-3); Lymphocytes % 56 % (10-50); Monocytes % 1 % (2-9); Neutrophils % 37 % (42-76); Platelet Estimate Normal; RBC Morphology Normal; Total Cells Counted 100
[2023-06-22 01:47] LABS: D-Dimer 0.42 ug/mL (0.0-0.5)
[2023-06-22 04:00] LABS: Troponin I < 0.01 ng/ml (0.00-0.034)
== END 2023-06-22 04:12 | disposition home or self-care (01) ==
PROVIDERS: Emergency Provider Emergency Medicine; PCP Nurse Practitioner Family
DX: R07.9 Chest pain, unspecified (principal); I10 Essential (primary) hypertension; E78.5 Hyperlipidemia, unspecified; K21.9 Gastro-esophageal reflux disease without esophagitis; F41.9 Anxiety disorder, unspecified; R01.1 Cardiac murmur, unspecified
CPT/HCPCS: 71045; 80053; 84484; 85007; 85025; 85378; 93005; 99285

== ENCOUNTER 2024-02-18 19:27 | Emergency (ER) | payer BC, MEDICARE, SELFPAY ==
[2024-02-18 19:40] VITALS: BP 204/112; PULSE 74; RESP 18; TEMP 36.7; O2SAT 100; BMI 28.3
--- NOTE | 2024-02-18 19:46 | PC.NURSE ---
Addendum entered by Verónica Rubio RN 02/18/24 19:47: #18 in left ac Original Note: #20 placed in right hand. Wrapped with coban.
--- NOTE | 2024-02-18 19:56 | PC.NURSE ---
patient given water and ice
[2024-02-18 20:00] VITALS: BP 193/96; PULSE 57; O2SAT 100
--- NOTE | 2024-02-18 20:07 | ECG_ITS ---
APPROVED REPORT Exam: Resting ECG HR:66 bpm ECG Measurements Heart Rate 66 AXES AK 157 P 69 QRSd 91 QRS 46 QT 395 T 41 QTc 408 Conclusion SINUS RHYTHM NORMAL ECG UNCONFIRMED REPORT Electronically signed by : Eulalio Jeffrey, 02/18/2024 23:09:15
--- NOTE | 2024-02-18 20:10 | HMH.EDGENADL ---
Discharge Plan Disposition Patient Disposition: Home, Self-Care Prescriptions Prescriptions: No Action esomeprazole magnesium [Nexium] 20 mg capsule,delayed release(DR/EC) 20 mg PO DAILY rosuvastatin 10 mg tablet 10 mg PO DAILY cholecalciferol (vitamin D3) 25 mcg (1,000 unit) capsule 25 mcg PO DAILY lisinopril-hydrochlorothiazide 10-12.5 mg tablet 1 tab PO DAILY potassium chloride [Klor-Con 10] 10 mEq tablet extended release 10 meq PO DAILY Qty: 30 2RF lisinopril 10 mg tablet 10 mg PO DAILY Qty: 30 5RF Referrals Follow up/Referrals: Gina Davalos [Primary Care Provider] - See instructions Activity Restrictions/Add. Instructions Additional Instructions/Restrictions: As discussed no evidence of endorgan damage from a clinical standpoint or a laboratory standpoint and her recent blood pressure guidelines your goal blood pressure is 150/90. I recommend that you keep a blood pressure log morning afternoon and night and discussed with your primary care doctor titration of your medications to a blood pressure management where you are near this goal blood pressure as often as possible. Clinical Impressions Clinical Impression: Dizziness, Hypertension Print Language Print Language: Jamaican Discharge ED Provider: Belem Jeffrey General Adult HPI General Chief complaint: Dizziness Stated complaint: HBP,dizziness,light headed Time Seen by Provider: 02/18/24 19:51 Mode of Arrival: Ambulatory Source of Information: Patient Limitations: No Limitations Description of Symptoms (Recalled from ER Triage Doc. by RN): Patient presents with complaints of high blood pressure, dizziness, and anxiety- in addition to general feeling of being unwell. History of Present Illness HPI narrative: Patient is a 68-year-old female presents today with dizziness and hypertension. She states that she denies any headache or changes in vision coordination numbness weakness or tingling any chest pain shortness of breath. She states that she has chronic hypertension she has been on lisinopril 10 recently changed to 20 and started feeling lightheaded today took her blood pressure and it was 190 systolic. She also has had times today where it was 150/90. She does not know her exact goal blood pressure for her primary care doctor. Denies missing any medication doses. Related Data Home Medications ?Medication ?Instructions ?Recorded ?Confirmed esomeprazole magnesium 20 mg 20 mg PO DAILY Reflux/Acid reflux 10/26/17 06/28/22 capsule,delayed release (Nexium) cholecalciferol (vitamin D3) 25 25 mcg PO DAILY 06/28/22 06/28/22 mcg (1,000 unit) capsule lisinopril 10 1 tab PO DAILY 06/28/22 06/28/22 mg-hydrochlorothiazide 12.5 mg tablet rosuvastatin 10 mg tablet 10 mg PO DAILY 06/28/22 06/28/22 Previous Rx's ?Medication ?Instructions ?Recorded potassium chloride 10 mEq 10 meq PO DAILY #30 tabs 06/28/22 tablet,extended release (Klor-Con) lisinopril 10 mg tablet 10 mg PO DAILY #30 tabs 09/30/22 Allergies Allergy/AdvReac Type Severity Reaction Status Date / Time ofloxacin [From Floxin] Allergy Verified 06/28/22 10:35 Penicillins Allergy Verified 06/28/22 10:35 Sulfa (Sulfonamide Allergy Verified 06/28/22 10:35 Antibiotics) [facility] Disclaimer: The information contained in this section may have been updated after the patient was seen, as this information can be updated by other users. Medical History Dyspnea Fatigue Heart murmur Social History Smoking Status: Never smoker alcohol intake: never substance use type: denies use current occupational status: employed Travel in the last 8 weeks: None household members: spouse and family housing: house caffeine: Yes ROS Obtained: Yes All systems reviewed & no additional complaints except as documented Physical Exam General General appearance: alert Respiratory Respiratory exam: Present normal lung sounds bilaterally; Absent respiratory distress Cardiovascular Cardiovascular exam: Present regular rate and normal rhythm Neurological Exam Neurological exam: Present alert, oriented X3, CN II-XII intact and normal gait; Absent motor sensory deficit Medical Decision Making Bg Inquiry Pt receiving controlled substance: No Vital Signs: 02/18/24 19:40 02/18/24 20:00 Temperature 98.1 F Temperature Source Oral Pulse Rate 57 L Pulse Rate [Right Radial] 74 Respiratory Rate 18 Blood Pressure 193/96 H Blood Pressure [Right Arm] 204/112 H Blood Pressure Mean [Right Arm] 142 Blood Pressure Source [Right Arm] Automatic Cuff Blood Pressure Position [Right Arm] Supine 02 Sat by Pulse Oximetry 100 100 Oxygen Delivery Method Room Air Lab Data Lab results reviewed: Yes I reviewed the patient's lab results. Lab Results 02/18/24 19:45: WBC 7.1, RBC 4.82, Hgb 14.1, Hct 47.3 H, MCV 98.2, MCH 29.3, MCHC 29.8 L, RDW 13.4, Plt Count 404, MPV 7.9, Neut % (Auto) 52.5, Lymph % (Auto) 42.3, Dewitt % (Auto) 3.6, Eos % (Auto) 0.9, Baso % (Auto) 0.6, Neut # (Auto) 3.7, Lymph # (Auto) 3.0, Dewitt # (Auto) 0.3, Eos # (Auto) 0.1, Baso # (Auto) 0.1, Sodium 143, Potassium 3.6, Chloride 108 H, Carbon Dioxide 29, Anion Gap 9.6, BUN 12, Creatinine 0.80, Estimated Creat Clear 61, Estimated GFR 72, Est GFR ( Amer) 87, Glucose 118 H, Calcium 9.2, Total Bilirubin 0.9, AST 35, ALT 26, Alkaline Phosphatase 85, Troponin I < 0.01, Total Protein 7.9, Albumin 4.7, Globulin 3.2, Albumin/Globulin Ratio 1.5 02/18/24 19:45 02/18/24 19:45 Orders (Tests/Meds): ED MEDICATIONS Generic Name Dose Route Start Last Admin Trade Name Freq PRN Reason Stop Dose Admin Lactated Ringer's 1,000 mls @ 999 mls/hr 02/18/24 20:15 02/18/24 20:12 Lactated Ringer's 1000 Ml Bag IV 02/18/24 21:15 999 mls/hr .Q1H1M KIRAN Administration ORDERS Category Date Time Status CBC w/Auto Diff [Complete Blood Count Auto Diff] Stat Lab 02/18/24 19:45 Completed CMP [Comprehensive Metabolic Panel] Stat Lab 02/18/24 19:45 Completed Trop I [Troponin I] Stat Lab 02/18/24 19:45 Completed Troponin I Q3H Lab 02/18/24 23:15 Ordered Troponin I Q3H Lab 02/19/24 02:15 Ordered ECG Data Tracing #1: I reviewed this ECG and interpreted as documented below: Ventricular of 66 sinus rhythm no acute ischemic changes noted noted normal axis no conduction abnormality Medical Decision Narrative: 68-year-old female with hypertension and dizziness. She has a normal neurologic exam including a posterior circulation exam. She does feel little bit lightheaded we will work this up in isolation from her blood pressure as I do not believe this is the causation. Will get basic blood work check for endorgan damage get an EKG give IV fluids and reassess. We had an extensive discussion about when we intervene on blood pressure in the emergency department she has no evidence of endorgan damage from a history of physical standpoint and will await her blood test for further evaluation and intervention. Most likely will not intervene on the blood pressure/the number itself. She has been advised to keep a blood pressure log assuming that her workup is negative. Will reassess after this initial workup is complete. Reassessment 9:11 PM patient appears very well actually significantly improved after some IV fluids she may have at some mild dehydration. No evidence of endorgan damage from the clinical laboratory standpoint no indication for any IV antihypertensive medications her sudden drop in her blood pressure which could in fact cause some ischemic damage. This was explained to her which she understood. She will keep a blood pressure log will continue follow-up with her primary care doctor in a close fashion I advised that she have a goal blood pressure of 150/90. She will return with any significant worsening symptoms specifically any evidence of endorgan damage. She was discharged in stable condition with serial neurologic and cardiovascular exam is normal. Critical Care Critical Care Time Critical Care Time: No
[2024-02-18] MEDS: LACTATED RINGERS 1000ML 1,000 ML 999 ML IV (20:12)
[2024-02-18 20:16] LABS: Basophils # 0.1 K/mm3 (0-0.2); Basophils % 0.6 % (0.1-2.0); Eosinophils # 0.1 K/mm3 (0.0-0.4); Eosinophils % 0.9 % (0.1-12.0); Hematocrit 47.3 % (37.0-47.0); Hemoglobin 14.1 g/dL (12.2-16.2); Lymphocytes % 42.3 % (10-50); Mean Corpuscular HGB Conc 29.8 g/dL (31.8-35.4); Mean Corpuscular Hemoglobin 29.3 pg (27.0-31.2); Mean Corpuscular Volume 98.2 fl (81-99); Mean Platelet Volume 7.9 fl (7.4-10.4); Monocytes # 0.3 K/mm3 (0.1-1.0); Monocytes % 3.6 % (1.7-9.3); Neutrophils # 3.7 K/mm3 (1.8-7.8); Neutrophils % 52.5 % (37.0-80.0); Platelet Count 404 K/mm3 (142-424); Red Blood Count 4.82 M/mm3 (4.20-5.40); Red Cell Distribution Width 13.4 % (11.5-17.5); White Blood Count 7.1 K/mm3 (4.8-10.8)
[2024-02-18 20:17] LABS: Albumin Level 4.7 g/dl (3.5-5.0); Chloride 108 mmol/L (98-107); Potassium 3.6 mmoL/L (3.5-5.1); Sodium 143 mmol/L (136-145)
[2024-02-18 20:19] LABS: Blood Urea Nitrogen 12 mg/dl (7-17); Creatinine Clearance Estimated 61 mL/min (50-200); Estimated Glomerular Filt Rate 72 ml/min (>60); GFR (African American) 87 ML/MIN (>60)
[2024-02-18 20:20] LABS: Alanine Aminotransferase 26 U/L (12-78); Albumin/Globulin Ratio 1.5 (1.1-1.8); Alkaline Phosphatase 85 U/L (38-126); Aspartate Amino Transferase 35 U/L (14-36); Bilirubin,Total 0.9 mg/dl (0.2-1.3); Calcium 9.2 mg/dl (8.4-10.2); Globulin 3.2 g/dL (1.3-3.2); Glucose 118 mg/dl (74-100); Total Protein,Serum 7.9 g/dl (6.3-8.2)
[2024-02-18 20:30] VITALS: BP 200/172; PULSE 52; O2SAT 100
[2024-02-18 20:32] LABS: Troponin I < 0.01 ng/ml (0.00-0.034)
[2024-02-18 20:36] VITALS: BP 211/100; PULSE 52; RESP 10; O2SAT 100
[2024-02-18 20:45] LABS: Anion Gap 9.6 mEq/L (5-15); Carbon Dioxide 29 mmol/L (22.0-30.0)
[2024-02-18 21:01] VITALS: BP 181/86; PULSE 53; RESP 15; O2SAT 98
[2024-02-18 21:27] VITALS: BP 181/86; PULSE 51; RESP 145; TEMP 36.8; O2SAT 100
== END 2024-02-18 21:31 | disposition home or self-care (01) ==
PROVIDERS: Emergency Provider Student in an Organized Health Care Education/Training Program; PCP Nurse Practitioner Family
DX: R42 Dizziness and giddiness (principal); I10 Essential (primary) hypertension
CPT/HCPCS: 80053; 84484; 85025; 93005; 96360; 99284; J7120

== ENCOUNTER 2025-01-11 10:27 | Outpatient (CLI) | payer BC, MEDICARE, SELFPAY ==
--- OUTSIDE RECORDS SUMMARY | 2025-01-11 10:30 | XMS_ITS | Clinical Summary ---
[facility] Address [address] [place] [address] Care Team Providers Care Ash Worker Name Role Phone Gina Davalos RONAK Primary Care Provider [phone] Allergies Active Allergy Reactions Criticality Noted Date Comments Cephalosporins Medium 06/15/2016 Ofloxacin Anaphylaxis High 06/15/2016 Nitrofurantoin GI Intolerance Low 06/15/2016 Penicillins Anaphylaxis High 06/15/2016 Sulfa Antibiotics Anaphylaxis High 06/15/2016 Medications esomeprazole (nexIUM) 20 MG capsule Take 1 tablet by mouth Daily. Active lisinopril-hydr ochlorothiazide (PRINZIDE,ZESTO RETIC) 10-12.5 MG per tablet 12/24/2020 Activ e rosuvastatin (CRESTOR) 10 MG tablet Take 10 mg by mouth Daily. 12/24/2020 Active Cholecalciferol (Vitamin D3) 25 MCG (1000 UT) capsule Take 1,000 Units by mouth Daily. Active Loratadine 10 MG capsule Take 1 capsule by mouth As Needed. Active ASHWAGANDHA PO Take 2 tablets by mouth Daily. Active Active Problems No known active problems Family History Medical History Relation Name Comments Bradycardia Brother Pancreatic cancer Father Bradycardia Mother Relation Name Status Comments Brother Alive Father Mother Alive Social History Tobacco Use Types Packs/Day Years Used Date Smoking Tobacco: Never Smokeless Tobacco: Never Alcohol Use Standard Drinks/Week Comments Never 0 (1 standard drink = 0.6 oz pur e alcohol) Abuse Screen Answer Date Recorded Unsafe at Home or Work/School Not on file Feels Threatened by Someone? Not on file 04/2023 Does Anyone Keep You from Co ntacting Others or Doint Things Outside the Home? Not on file 03/16/2023 Physical Sign of Abuse Present Not on file 1 Housing Stability Answer Date Recorded Current Living Arrangements Not on file 03/06 Potentially Unsafe Housing Conditions Not on melanie e 03/16/2023 Family and Community Support Answer Juanpablo e Recorded Help with Day-to-Day Activities Not on file 03/16/2023 Lonely or Isolated Not on file 03/16/2023 Employment Answer Date Recorded Do you want help finding or keeping work or a yosvany b? Not on file 03/16/2023 Disabilities Answer Date Recorded Concentrating, Remembering, or Making Decisions Difficulty Not on file 03/16/2023 Doing Errands Independently Difficulty Not on fi le 03/16/2023 Education Answer Date Recorded Help with school or training? Not on file Preferred Language Not on file 03/16/2023 Comments Unknown Sex and Gender Information Value Date Recorded Sex Assigned at Not on file Legal Sex Female 9:55 AM EST Gender Identity Not on file Sexual Orientation Not on file Last Filed Vital Signs Vital Sign Reading Time Taken Comments Blood Pressure 116/70 02/17/2021 9:46 AM EDT Pulse 64 02/17/2021 9:46 AM EDT Temperature 36.9 C (98.4 F) 01/27/2019 8:49 AM EDT Respiratory Rate 16 01/27/2019 8:49 AM EDT Oxygen Saturation 95% 02/17/2021 9:46 AM EDT Inhaled Oxygen Concentration - - Weight 70 kg (154 lb 5.2 oz) 04/14/2021 4:38 PM EST Height 160 cm (5' 2.99 ) 04/14/2021 4:38 PM EST Body Mass Index 27.34 04/14/2021 4:38 PM EST Plan of Treatment Health Maintenance Due Date Last Done Comments DXA SCAN 1957 TDAP/TD VACCINES (1 - Tdap) 1976 MAMMOGRAM 1997 COLOGUARD 2002 COLON CANCER SCREENING 5 YEAR SIGMOIDOSCOPY 2002 COLONOSCOPY 2002 [address] CANCER SCREENING 2002 CT COLONOGRAPHY 2002 FECAL OCCULT BLOOD TEST 2002 FIT Testing (1 year) 2002 Pneumococcal Vaccine 50+ (1 of 1 - PCV) 09/25/2007 ZOSTER VACCINE (1 of 2) 09/25/2007 ANNUAL PHYSICAL 01/27/2019 HEPATITIS C SCREENING 01/27/2019 COVID-19 Vaccine (2 - season) 02/05/202401/2021 INFLUENZA VACCINE 03/06/2025 03/22/2018 Insurance Care Teams Ash Worker Relationship Specialty Start Date End Date Gina Davalos APRN [address] [place], [place] [id number] PCP - General Nurse Practitioner 04/14/21
--- NOTE | 2025-01-11 10:32 | MM_ITS ---
PROCEDURE INFORMATION: Exam: MG Bilateral Screening 3D Mammography Exam date and time: 01/11/2025 10:34 AM Age: 69 years old Clinical indication: Screening examination TECHNIQUE: Imaging protocol: Bilateral Screening tomosynthesis and 2D mammography including computer-aided detection (CAD) when performed. COMPARISON: 1. MG MM DIG SCREENING MAMM BI W/CAD 01/13/2023 9:51 AM 2. MG MM DIG SCREENING MAMM BI W/CAD 04/14/2021 10:00 AM FINDINGS: MAMMOGRAPHY: Breast composition: There are scattered areas of fibroglandular density. Mass: None. Architectural distortion: None. Calcifications: No suspicious calcifications. Asymmetric density: None. Skin thickening: None. Axillary adenopathy: None. IMPRESSION: No mammographic evidence of malignancy. Annual screening is recommended unless otherwise clinically indicated. ASSESSMENT: BI-RADS Category 1: Negative.
== END 2025-01-11 23:59 | disposition home or self-care (01) ==
LOC: RAD 10:27
PROVIDERS: PCP Nurse Practitioner Family; Visit Provider Nurse Practitioner Family
DX: Z12.31 Encounter for screening mammogram for malignant neoplasm of breast (principal)
CPT/HCPCS: 77063; 77067